=== PATIENT | male | born 1970 | race American Indian/Alaskan Native ===

== ENCOUNTER → 2017-09-19 | Outpatient (CLI) | payer BC | END | disposition home or self-care (01) | LOC: PLD 09:52 → LAB SHORT 09:52 | DX: D48.5 Neoplasm of uncertain behavior of skin (principal) | CPT/HCPCS: 88305 ==

== ENCOUNTER 2019-06-20 06:13 | Day surgery (SDC) | payer BC ==
[~2019-06-20] VITALS: Ht 185.4 cm; Wt 114.1 kg
[2019-06-20] MEDS ORDERED: NASACORT10.8 ML (07:01)
[2019-06-20] MEDS ORDERED: Ipratropium Bro30 ML (07:01)
== END 2019-06-20 10:05 | disposition home or self-care (01) ==
LOC: ORSCSDS 06:13
PROVIDERS: Surgery
PROC: 0YU50JZ Supplement Right Inguinal Region with Synthetic Substitute, Open Approach (ICD-10-PCS; principal; 2019-06-20 07:30)
DX: K40.90 Unilateral inguinal hernia, without obstruction or gangrene, not specified as recurrent (principal)
CPT/HCPCS: C1781; J0690; J1100; J1885; J2250; J2370; J2405; J2704; J3010; J7120

== ENCOUNTER 2020-02-26 06:12 | Day surgery (SDC) | payer BC ==
[~2020-02-26] VITALS: Ht 185.4 cm; Wt 110.8 kg
[~2020-02-26 06:12] MED LIST: AZELASTINE137 MCG/01; Ipratropium Bro30 ML; NASACORT10.8 ML; OMEP20ER PO
[2020-02-26] MEDS ORDERED: PRED20 PO (07:31)
[2020-02-26] MEDS ORDERED: CLAR500 PO (07:34)
--- NOTE | 2020-02-26 11:13 | NUR ---
02/26/20 1113 Jenkins,Nevaeh RECIEVED FROM OR STILL NOT RESPONSIVE. VSS LUNGS CLEAR.
--- NOTE | 2020-02-26 12:10 | NUR ---
02/26/20 1210 Nevaeh Gerard CONTINUES TO BE DROWSY. LEFT TO SLEEP IN RECLINER. DENIES PAIN. TOOK SIP OF WATER BUT STILL VERY SLEEPY.
== END 2020-02-26 13:58 | disposition home or self-care (01) ==
LOC: ORSCSDS 06:12
PROVIDERS: Otolaryngology
PROC: 09SM4ZZ Reposition Nasal Septum, Percutaneous Endoscopic Approach (ICD-10-PCS; principal; 2020-02-26 07:30)
PROC: 09DU4ZZ Extraction of Right Ethmoid Sinus, Percutaneous Endoscopic Approach (ICD-10-PCS; principal; 2020-02-26 07:30)
PROC: 8E09XBZ Computer Assisted Procedure of Head and Neck Region (ICD-10-PCS; principal; 2020-02-26 07:30)
PROC: 09DV4ZZ Extraction of Left Ethmoid Sinus, Percutaneous Endoscopic Approach (ICD-10-PCS; principal; 2020-02-26 07:30)
DX: J32.8 Other chronic sinusitis (principal); J34.2 Deviated nasal septum
CPT/HCPCS: C2625; J1100; J2250; J2405; J2704; J2710; J3010; J7120

== ENCOUNTER → 2020-04-21 | Outpatient (CLI) | payer BC ==
[~2020-04-21] MED LIST changes: +CLAR500 PO; +PRED20 PO
== END | disposition home or self-care (01) ==
LOC: LAB 13:58 → LAB SHORT 13:58
DX: J32.8 Other chronic sinusitis (principal)
CPT/HCPCS: 87070; 87077; 87147; 87186

== ENCOUNTER 2021-07-06 03:04 | Emergency (ER) | payer OTHER, BC ==
[~2021-07-06] VITALS: Ht 188 cm; Wt 99.8 kg
[2021-07-06] MEDS ORDERED: AMOCLA875 PO (04:14)
== END 2021-07-06 05:39 | disposition home or self-care (01) ==
LOC: ER 03:04
DX: S61.254A Open bite of right ring finger without damage to nail, initial encounter (principal); S61.214A Laceration without foreign body of right ring finger without damage to nail, initial encounter; W54.0XXA Bitten by dog, initial encounter
CPT/HCPCS: 12001; 99282-25; A9270